=== PATIENT | female | born 1990 | race Caucasian/White ===

== ENCOUNTER 2016-11-05 20:00 | Emergency (ER) | payer OTHER ==
[~2016-11-05] VITALS: Ht 157.5 cm; Wt 50.5 kg
[~2016-11-05 20:00] MED LIST: PRENATAL
[2016-11-05 20:12] VITALS: BP 102/63; TEMP 98.2
[2016-11-05 21:08] VITALS: PULSE 80
[2017-04-15] MEDS ORDERED: FOLIC ACID 11 MG/TA1 PO (16:49)
== END 2016-11-05 21:08 | disposition home or self-care (01) ==
LOC: COL.ER 20:00
DX: O9A.211 Injury, poisoning and certain other consequences of external causes complicating pregnancy, first trimester (principal); O30.001 Twin pregnancy, unspecified number of placenta and unspecified number of amniotic sacs, first trimester; S39.81XA Other specified injuries of abdomen, initial encounter; Z3A.10 10 weeks gestation of pregnancy

== ENCOUNTER → 2017-04-15 | Outpatient (CLI) | payer OTHER ==
[~2017-04-15] VITALS: Ht 157.5 cm; Wt 69.5 kg
[~2017-04-15] MED LIST changes: +CIPRO 500MG TA500 MG PO; +FOLIC ACID 11 MG/TA1 PO; +NORCO 325 MG-51 TAB PO
[2017-04-15 16:50] VITALS: BP 125/66; PULSE 97; TEMP 99
[2017-04-15 17:45] VITALS: BP 112/60; PULSE 94; TEMP 99
== END ==
LOC: LDRO 16:13
DX: O30.033 Twin pregnancy, monochorionic/diamniotic, third trimester (principal); Z3A.32 32 weeks gestation of pregnancy

== ENCOUNTER 2017-05-26 19:40 | Emergency (ER) | payer OTHER ==
[~2017-05-26] VITALS: Ht 157.5 cm; Wt 60.5 kg
[~2017-05-26 19:40] MED LIST changes: -CIPRO 500MG TA500 MG PO; -NORCO 325 MG-51 TAB PO
[2017-05-26 19:44] VITALS: TEMP 98.1
[2017-05-26 20:57] LABS: COLLECTION METHOD CATHETER
[2017-05-26 21:01] LABS: BASO # 0.1 (0.0-0.2); BASO % 0.5 % (0.0-2.0); EOS # 0.2 (0.0-0.7); EOS % 1.3 % (0-4.0); GRAN # 8.7 (1.4-6.5); GRAN % 67.4 % (42.2-75.2); HEMATOCRIT 44.4 % (37.0-47.0); HEMOGLOBIN 14.8 g/dl (12.5-16.0); LYMPH # 3.1 (1.2-3.4); LYMPH % 24.1 % (20.0-51.0); MEAN CELL VOLUME 98 fl (80.0-100.0); MEAN CORPUSCULAR HEMOGLOBIN 33 pg (27.0-31.0); MEAN CORPUSCULAR HGB CONC 33 g/dl (33.0-37.0); MEAN PLATELET VOLUME 9.3 fl (7.4-10.4); MONO # 0.8 (0.1-0.6); MONO % 6.2 % (1.7-9.3); PLATELET COUNT 430 K/mm3 (130-400); RED BLOOD COUNT 4.52 M/mm3 (4.10-5.30); REDCELL DISTRIBUTION WIDTH-CV 13.1 % (11.5-14.5)
[2017-05-26 21:08] LABS: MUCOUS Present /lpf; PH 7 (5-8); SQUAMOUS EPITHELIAL None Seen /hpf; URINE APPEARANCE Hazy; URINE BACTERIA Rare /hpf; URINE BILIRUBIN Negative (NEGATIVE); URINE BLOOD Negative (NEGATIVE); URINE COLOR Yellow; URINE GLUCOSE Negative (NEGATIVE); URINE KETONE Negative (NEGATIVE); URINE LEUKOCYTE ESTERASE 1+ (NEGATIVE); URINE NITRATE Negative (NEGATIVE); URINE PROTEIN(semi-quant) 3+ (NEGATIVE); URINE UROBILINOGEN Negative (NEGATIVE)
[2017-05-26 21:22] LABS: BILIRUBIN,TOTAL 0.5 mg/dL (0.0-1.0); C-REACTIVE PROTEIN 1.2 mg/dL (0.0-0.9); CALCIUM 9.6 mg/dL (8.4-10.2); CREATININE, serum 0.95 mg/dL (0.52-1.25); POTASSIUM 3.8 mmol/L (3.4-5.0); TOTAL PROTEIN 7.5 gm/dL (6.4-8.2)
[2017-05-26 21:50] VITALS: BP 121/72; PULSE 71
[2017-05-26] MEDS ORDERED: CIPRO 500MG TA500 MG PO (22:22)
[2017-05-26] MEDS ORDERED: NORCO 325 MG-51 TAB PO (22:22)
== END 2017-05-26 22:46 | disposition home or self-care (01) ==
LOC: COL.ER 19:40
PROVIDERS: Emergency Medicine
DX: O86.20 Urinary tract infection following delivery, unspecified (principal); O99.89 Other specified diseases and conditions complicating pregnancy, childbirth and the puerperium; R10.31 Right lower quadrant pain; R93.8 Abnormal findings on diagnostic imaging of other specified body structures
CPT/HCPCS: J3010; J7030; Q9967